=== PATIENT | female | born 1995 | race Two or more races ===

== ENCOUNTER 2023-03-31 11:59 | Emergency (ER) | payer OTHER ==
[2023-03-31 12:00] VITALS: BP 122/66; TEMP 99.4; O2SAT 99
[2023-03-31] MEDS ORDERED: ETON68IM SC (12:10)
[2023-03-31 13:06] LABS: RSV AMPLIFICATION NEGATIVE (NEGATIVE)
[2023-03-31] MEDS ORDERED: IBUPROFEN 600MG TAB PO ONE (13:50)
[2023-03-31] MEDS ORDERED: ACETAMINOPHEN 500 MG TAB PO ONE (13:50)
[2023-03-31] MEDS ORDERED: BENZ200C70 PO (14:19)
== END 2023-03-31 14:25 | disposition home or self-care (01) ==
LOC: M ED 11:59
DX: U07.1 COVID-19 (principal); Z79.811 Long term (current) use of aromatase inhibitors; Z79.3 Long term (current) use of hormonal contraceptives
CPT/HCPCS: 71046; 87631; 99282; J1100

== ENCOUNTER 2023-10-07 02:51 | Emergency (ER) | payer OTHER ==
[~2023-10-07] VITALS: Ht 170.2 cm; Wt 74.8 kg
[~2023-10-07 02:51] MED LIST: BENZ200C70 PO; ETON68IM SC
[2023-10-07] MEDS ORDERED: TOPI25CA5 PO (02:57)
[2023-10-07 04:53] LABS: HEMATOCRIT 37.4 % (36.0-47.0); HEMOGLOBIN 12.5 g/dl (12.0-15.5); MEAN CORPUSCULAR HGB CONC 33.4 g/dl (32.0-36.5); MEAN CORPUSCULAR VOLUME 86.8 fl (80.0-96.0); PLATELET COUNT, AUTOMATED 238 10^3/uL (150-450); RED BLOOD COUNT 4.31 10^6/uL (4.00-5.40); WHITE BLOOD COUNT 8.8 10^3/uL (4.0-10.0)
[2023-10-07 05:00] VITALS: TEMP 98
[2023-10-07 05:15] LABS: ALBUMIN 3.9 G/DL (3.2-5.2); ALKALINE PHOSPHATASE 72 U/L (46-116); ALT/SGPT 24 U/L (7.0-40); AST/SGOT 10 U/L (<34); BILIRUBIN,TOTAL 0.5 MG/DL (0.3-1.2); BLOOD UREA NITROGEN 18 MG/DL (9-23); CARBON DIOXIDE LEVEL 25 MMOL/L (20-31); CHLORIDE LEVEL 108 MMOL/L (98-107); CREATININE FOR GFR 0.67 MG/DL (0.55-1.30); GLOMERULAR FILTRATION RATE > 60.0 (>60); GLUCOSE, FASTING 97 MG/DL (60-100); POTASSIUM SERUM 3.9 MMOL/L (3.5-5.1); SODIUM LEVEL 139 MMOL/L (136-145)
[2023-10-07] MEDS: NS 1,000 ML IV ONE (06:25)
[2023-10-07] MEDS: KETOROLAC 30 MG/ML 1ML VIAL IV ONE (06:25)
[2023-10-07] MEDS: ONDANSETRON 4MG 2ML VIAL IV ONE (06:26)
[2023-10-07 07:30] VITALS: BP 109/55
[2023-10-07] MEDS ORDERED: ONDA-282 PO (07:44)
[2023-10-07 07:45] VITALS: O2SAT 98
== END 2023-10-07 08:50 | disposition home or self-care (01) ==
LOC: M ED 02:51
DX: K76.0 Fatty (change of) liver, not elsewhere classified (principal); Z79.899 Other long term (current) drug therapy
CPT/HCPCS: 74021; 76705; 80053; 81001; 85027; 96361; 96374; 96375; 99284; J1885; J2405

== ENCOUNTER 2024-02-19 15:41 | Emergency (ER) | payer OTHER ==
[~2024-02-19] VITALS: Ht 170.2 cm; Wt 78.3 kg
[~2024-02-19 15:41] MED LIST changes: +ONDA-282 PO; +TOPI25CA5 PO
[2024-02-19] MEDS ORDERED: IBUP-1022 PO (17:26)
[2024-02-19] MEDS ORDERED: BENZ200C70 PO (17:26)
[2024-02-19] MEDS ORDERED: ONDA-282 PO (17:26)
[2024-02-19 17:30] VITALS: BP 115/78; TEMP 97.3; O2SAT 99
== END 2024-02-19 17:30 | disposition home or self-care (01) ==
LOC: M ED 15:41
DX: J06.9 Acute upper respiratory infection, unspecified (principal); Z79.899 Other long term (current) drug therapy

== ENCOUNTER 2024-12-22 07:44 | Outpatient (CLI) | payer OTHER ==
[~2024-12-22] VITALS: Ht 170.2 cm; Wt 75.0 kg
[~2024-12-22 07:44] MED LIST changes: +IBUP600T42 PO
[2024-12-22 08:10] VITALS: BP 103/69; O2SAT 100
[2024-12-22] MEDS: COSYNTROPIN 0.25 MG/ML 1ML VIAL IV ONE (08:21)
[2024-12-22 10:00] VITALS: BP 120/58; O2SAT 100
== END 2024-12-22 10:13 | disposition home or self-care (01) ==
LOC: M INFU 07:44
PROVIDERS: ATTEND Student in an Organized Health Care Education/Training Program
DX: E23.7 Disorder of pituitary gland, unspecified (principal)
CPT/HCPCS: 36415; 82024; 82533; 96374; J0834

== ENCOUNTER 2025-01-25 22:11 | Emergency (ER) | payer OTHER ==
[~2025-01-25] VITALS: Ht 170.2 cm; Wt 73.6 kg
[2025-01-25 22:15] VITALS: BP 119/63; TEMP 97.7; O2SAT 99
== END 2025-01-25 23:45 | disposition left against medical advice (07) ==
LOC: M ED 22:11
DX: Z53.21 Procedure and treatment not carried out due to patient leaving prior to being seen by health care provider (principal)